=== PATIENT | female | born 1995 | race Hispanic/Latino ===

== ENCOUNTER 2023-05-01 03:21 | Inpatient (IN) | payer MEDICAID ==
[2023-05-01 05:30] LABS: BASOPHILS PERCENT AUTO 0.1 % (0.0-1.5); EOSINOPHILS ABSOLUTE AUTO 0.1 K/uL (0.0-0.7); EOSINOPHILS PERCENT AUTO 0.5 % (0.0-7.0); HEMATOCRIT 39.6 % (36.0-46.0); HEMOGLOBIN 13.4 g/dL (12.0-16.0); LYMPHOCYTES ABSOLUTE AUTO 2.6 K/uL (0.6-2.4); LYMPHOCYTES PERCENT AUTO 17.4 % (16.0-40.0); MEAN CORPUSCULAR HEMOGLOBIN 27.9 pg (27.0-32.0); MEAN CORPUSCULAR HGB CONC 33.8 g/dL (31.0-37.0); MEAN CORPUSCULAR VOLUME 82.3 fL (80.0-98.0); MONOCYTES ABSOLUTE AUTO 0.9 K/uL (0.0-0.8); MONOCYTES PERCENT AUTO 6.1 % (0.0-15.0); NEUTROPHILS ABSOLUTE AUTO 11.4 K/uL (1.4-5.7); NEUTROPHILS PERCENT AUTO 75.9 % (48.0-80.0); NRBC ABSOLUTE 0 K/uL; PLATELET COUNT,PLT 227 K/uL (150-400); RED BLOOD CELL COUNT 4.81 M/uL (4.30-5.90); WHITE BLOOD CELL COUNT,WBC 15.02 K/uL (4.0-11.0)
[2023-05-01] MEDS ORDERED: Terbutaline 1 MG/ML SDV SUBCUT PRN (08:23)
[2023-05-01] MEDS ORDERED: Oxytocin/0.9 % Sodium Chloride 30 UNIT/500 ML BAG IV SCH (08:30)
[2023-05-01] MEDS: Lactated Ringers 1,000 ML IV SCH ×3 (12:35→19:56)
[2023-05-01] MEDS ORDERED: Dexmedetomidine 200 MCG/2 ML SDV ONE (18:10)
[2023-05-01] MEDS ORDERED: Ropivacaine/PF 400 MG/200 ML PCA ONE (18:10)
[2023-05-01] MEDS ORDERED: Phenylephrine HCl 0.5 MG/5 ML AMP IVPUSH PRN (18:29)
[2023-05-01] MEDS ORDERED: ePHEDrine 50 MG/ML SDV IVPUSH PRN ×2 (18:29)
[2023-05-01] MEDS ORDERED: Ropivacaine HCl/PF 400 MG in Premix Bag 1 BAG EPIDUR SCH (18:30)
[2023-05-02] MEDS: Lactated Ringers 1,000 ML IV SCH (01:09)
[2023-05-02] MEDS: Acetaminophen 500 MG Tab PO PRN ×3 (01:28→21:10)
[2023-05-02] MEDS ORDERED: Ibuprofen 400 MG Tab PO PRN (03:33)
[2023-05-02] MEDS ORDERED: Witch Hazel Medicated Pads 40/Jar TOP PRN (03:33)
[2023-05-02] MEDS ORDERED: Docusate Sodium 100 MG Cap PO PRN (03:33)
[2023-05-02] MEDS ORDERED: Bisacodyl 10 MG Supp RECTAL PRN (03:33)
[2023-05-02] MEDS ORDERED: Lanolin 100% Cream 7 GM Tube TOP PRN (03:33)
[2023-05-02] MEDS ORDERED: Acetaminophen 500 MG Tab PO PRN ×2 (03:33)
[2023-05-02] MEDS ORDERED: oxyCODONE 5 MG Tab PO PRN (03:33)
[2023-05-02] MEDS ORDERED: Benzocaine/Menthol 20%-0.5% Spray 78 GM Cannister TOP PRN (03:33)
[2023-05-02] MEDS: Ibuprofen 800 MG Tab PO PRN ×2 (05:36→21:08)
[2023-05-03 07:35] LABS: HEMATOCRIT 32.7 % (36.0-46.0); HEMOGLOBIN 10.9 g/dL (12.0-16.0)
[2023-05-04] MEDS: Ibuprofen 800 MG Tab PO PRN (01:45)
== END 2023-05-04 12:19 | disposition home or self-care (01) | DRG 807 ==
LOC: MW.OB 03:21 → OBSVTOIN 05-02 03:21 → MW.OB 05-02 07:20
PROVIDERS: ADMIT Obstetrics & Gynecology; ATTEND Obstetrics & Gynecology
PROC: 10E0XZZ Delivery of Products of Conception, External Approach (ICD-10-PCS; principal; 2023-05-02)
PROC: 3E0R3BZ Introduction of Anesthetic Agent into Spinal Canal, Percutaneous Approach (ICD-10-PCS; 2023-05-02)
PROC: 0HQ9XZZ Repair Perineum Skin, External Approach (ICD-10-PCS; 2023-05-02)
PROC: 00HU33Z Insertion of Infusion Device into Spinal Canal, Percutaneous Approach (ICD-10-PCS; 2023-05-02)
DX: O42.02 Full-term premature rupture of membranes, onset of labor within 24 hours of rupture (principal); Z37.0 Single live birth; O70.0 First degree perineal laceration during delivery; O77.0 Labor and delivery complicated by meconium in amniotic fluid; Z3A.40 40 weeks gestation of pregnancy
CPT/HCPCS: 01967; 36415; 59025; 59409; 85014; 85018; 85025; 86592; 86850; 86900; 86901; A9270-GY; J2590; J2795; J3490; J7120